=== PATIENT | female | born 2000 | race Caucasian/White ===

== ENCOUNTER 2021-03-14 21:47 | Emergency (ER) | payer OTHER, SELFPAY ==
[2021-03-14 21:57] VITALS: BP 150/88; PULSE 83; RESP 18; TEMP 36.6; O2SAT 98; BMI 35.3
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
== END 2021-03-14 22:53 | disposition home or self-care (01) ==
PROVIDERS: Emergency Provider Emergency Medicine
DX: L03.115 Cellulitis of right lower limb (principal); M79.671 Pain in right foot
CPT/HCPCS: 99283

== ENCOUNTER 2023-12-18 18:36 | Emergency (ER) | payer OTHER, SELFPAY ==
--- NOTE | 2023-12-18 19:00 | ED.GENADULT ---
HPI - General Adult General Chief complaint: Nausea/Vomiting/Diarrhea Stated complaint: vomiting blood, 10 wks Time Seen by Provider: 12/18/23 21:31 Source: patient Mode of arrival: ambulatory Limitations: no limitations History of Present Illness ED Provider: freda OLIVA narrative: Patient is 10 weeks 2 been vomiting for last few days unable to hold any liquids solids down does not have any medication for nausea yet no vaginal bleeding no significant abdominal pain no fever no chills no urinary complaint Related Data Previous Rx's ?Medication ?Instructions ?Recorded bacitracin 500 unit/gram topical 1 appl topical BID #30 grams 03/14/21 ointment cephalexin 500 mg capsule 500 mg PO QID 7 days #28 caps 03/14/21 cefuroxime axetil 250 mg tablet 250 mg PO BID 7 days #14 tabs 12/19/23 ondansetron 4 mg disintegrating 4 mg PO Q6-8H PRN nausea and 12/19/23 tablet vomiting #20 tabs pyridoxine (vitamin B6) 25 mg 25 mg PO TID #30 tabs 12/19/23 tablet Allergies Allergy/AdvReac Type Severity Reaction Status Date / Time No Known Allergies Allergy Verified 12/18/23 19:02 Review of Systems Review of Systems: Yes all other systems are reviewed and are negative [facility] Social History Social History Smoked in Last 30 Days: No Use of substances other than those prescribed or required for medical reasons: No Advance Directives: No Advance Directives Information Provided: No Do you have a plan to hurt others: No Plan Patient : Yes Physical Exam ED Vital Signs: Vital Signs - 24 hr 12/18/23 19:01 12/18/23 21:54 Temperature 98.2 F 98.9 F Pulse Rate 81 69 Respiratory Rate 17 16 Blood Pressure 134/90 H 120/64 Pulse Oximetry 98 97 Oxygen Delivery Method Room Air Room Air BMI result Body Mass Index 36.3 Appearance: Alert. Oriented X3. No acute distress. Eyes: No pallor or icterus ENT: Pharynx normal. Oral Mucosa moist Neck: Normal inspection. Neck supple. CVS: Normal heart rate and rhythm. Pulses normal. Respiratory: No respiratory distress. Equal air entry bilateral, Abdomen: Soft and nontender. Bowel sounds are present, no mass palpable, no CVA tenderness Skin: Skin warm and dry. Normal skin color. Normal skin turgor. Extremities: No lower extremity edema. No calf tenderness Neuro: Oriented X 3. Course Course Course Narrative: RME performed by Bell Glez PA-C. Patient is a 23 year old assigned female at presenting to the emergency department with vomiting blood. Patient states she is 10 weeks and has been vomiting blood, unable to keep anything down. Patient states that she OBs through [facility]. Detailed physical exam and review of systems are deferred to the working second hand. Labs and swabs ordered. Patient placed back in the waiting room pending room availability and results. Medications Administered Discontinued Medications Generic Name Dose Route Start Last Admin Trade Name Freq PRN Reason Stop Dose Admin Al Hydroxide/Mg Hydroxide 30 ml 12/18/23 21:33 12/18/23 22:04 Magnesium Hydrox/Alum Hydrox 30 Ml Oral.Susp PO 12/18/23 21:34 30 ml ONCE ONE Administration Sodium Chloride 1,000 mls @ 999 mls/hr 12/18/23 21:32 12/18/23 23:05 Ns IV 12/18/23 22:32 Infused .Q1H1M ONE Infusion Ceftriaxone Sodium 1 gm/ 50 mls @ 100 mls/hr 12/18/23 21:33 12/18/23 22:59 Sodium Chloride IV 12/18/23 22:02 Infused ONCE ONE Infusion Ondansetron HCl 4 mg 12/18/23 21:32 12/18/23 22:04 Ondansetron Hcl 4 Mg/2 Ml Vial IVPUSH 12/18/23 21:33 4 mg ONCE ONE Administration Medical Decision Making Medical Decision Making MDM Narrative: Patient is 10 weeks with UTI received IV fluids IV Zofran and IV Rocephin feeling much better taking p.o. fluids will discharge patient home on cefuroxime and Zofran advised to follow with OBGYN Lab Data MDM Lab Attestation statement: I reviewed the patient's lab results. 12/18/23 19:23 12/18/23 19:23 Labs: Lab Results 12/18/23 Range/Units 19:23 WBC 12.7 H (4.8-10.8) X10*3/uL RBC 3.92 L (4.20-5.50) X10*6/uL Hgb 11.7 L (12.0-16.0) g/dl Hct 34.7 L (37.0-47.0) % MCV 88.5 (80.0-98.0) fL MCH 29.8 (27.0-33.0) pg MCHC 33.7 (31.0-35.0) g/dl RDW 13.5 (11.0-16.0) % Plt Count 339 (160-400) X10*3/uL MPV 9.4 (9.4-12.3) fL Immature Gran % (Auto) 0.3 (0.0-0.4) % Neut % (Auto) 68.2 (45-73) % Lymph % (Auto) 24.9 (20-40) % Shannon % (Auto) 5.8 (2-11) % Eos % (Auto) 0.6 (0-4) % Baso % (Auto) 0.2 (0-2) % Lymph # (Auto) 3.2 (1.2-4.9) X10*3/uL Shannon # (Auto) 0.7 (0.1-1.2) X10*3/uL Eos # (Auto) 0.1 (0.0-0.4) X10*3/uL Baso # (Auto) 0.0 (0.0-0.2) X10*3/uL Abs Immat Gran (auto) 0.04 H (0.00-0.03) X10*3/uL Absolute Neuts (auto) 8.6 H (2.0-8.3) x10*3/uL Absolute Nucleated RBC 0.000 (0.0-0.012) X10*3/uL Nucleated RBC % (auto) 0.0 (0.0-0.2) /100WBC Sodium 137 (135-145) mmol/L Potassium 3.7 (3.3-5.1) mmol/L Chloride 109 H (96-108) mmol/L Carbon Dioxide 21 L (22-29) mmol/L Anion Gap 11 L (12-20) BUN 10 (9-16) mg/dL Creatinine 0.67 (0.5-1.4) mg/dL Estim Creat Clear Calc 128.7 Estimated GFR > 60 Random Glucose 76 (60-115) mg/dL Calcium 9.2 (8.4-10.2) mg/dL Magnesium 1.9 (1.6-2.6) mg/dL Total Bilirubin 0.3 (0.0-1.0) mg/dL AST 19 (5-31) U/L ALT 15 (0-31) U/L Alkaline Phosphatase 72 (39-117) U/L Total Protein 7.2 (6.5-8.0) g/dL Albumin 3.8 (3.5-5.0) g/dL Beta HCG, Quant [id number] mIU/mL Urine Color Yellow Urine Appearance Cloudy Urine pH 5.5 (5.0-9.0) Ur Specific Wenden 1.025 (1.005-1.025) Urine Protein Negative (Neg-Trace) mg/dL Urine Glucose (UA) Negative (Negative) mg/dL Urine Ketones Trace (Negative) mg/dL Urine Blood Small (1+) H (Negative) Urine Nitrite Negative (Negative) Ur Leukocyte Esterase Moderate (2+) H (Negative) Urine RBC 6-10 H (0-2) /HPF Urine WBC 11-20 H (0-5) /HPF Ur Squamous Epith Cells 6-10 (0-2) /HPF Urine Bacteria 4+ (None Seen) Hyaline Casts 3-5 (0-2) /LPF Discharge Plan Discharge Clinical Impression: Hyperemesis gravidarum, UTI (urinary tract infection) Patient Disposition: Home, Self-Care Instructions: Hyperemesis Gravidarum (ED), Urinary Tract Infection in (ED) Additional Instructions: Drink plenty of fluids Medicine for nausea as prescribed Antibiotic as prescribed for urinary tract infection 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
[2023-12-18 19:01] VITALS: BP 134/90; PULSE 81; RESP 17; TEMP 36.8; O2SAT 98; BMI 36.3
--- NOTE | 2023-12-18 19:24 | MHC.EDTECH ---
Patient brought into triage area,labs/urine obtained and sent to lab.
[2023-12-18 19:28] LABS: MANUAL DIFF FLAG NO
[2023-12-18 19:30] LABS: Basophils Percent Auto 0.2 % (0-2); Eosinophils Absolute Auto 0.1 X10*3/uL (0.0-0.4); Eosinophils Percent Auto 0.6 % (0-4); Hematocrit 34.7 % (37.0-47.0); Hemoglobin 11.7 g/dl (12.0-16.0); Imm Gran Abs Auto 0.04 X10*3/uL (0.00-0.03); Imm Gran Pct Auto 0.3 % (0.0-0.4); Lymphocytes Absolute Auto 3.2 X10*3/uL (1.2-4.9); Lymphocytes Percent Auto 24.9 % (20-40); Mean Corpuscular HGB Conc 33.7 g/dl (31.0-35.0); Mean Corpuscular Hemoglobin 29.8 pg (27.0-33.0); Mean Corpuscular Volume 88.5 fL (80.0-98.0); Mean Platelet Volume 9.4 fL (9.4-12.3); Monocytes Absolute Auto 0.7 X10*3/uL (0.1-1.2); Monocytes Percent Auto 5.8 % (2-11); Neutrophils Absolute Auto 8.6 x10*3/uL (2.0-8.3); Neutrophils Percent Auto 68.2 % (45-73); Platelet Count 339 X10*3/uL (160-400); Red Blood Count 3.92 X10*6/uL (4.20-5.50); Red Cell Distribution Width 13.5 % (11.0-16.0); White Blood Count 12.7 X10*3/uL (4.8-10.8)
[2023-12-18 19:31] LABS: Appearance Urine Cloudy; Color Urine Yellow; Glucose Urine UA Negative (Negative); Leukocyte Esterase Urine Moderate (2+) (Negative); Nitrite Urine Negative (Negative); PH 5.5 (5.0-9.0); Specific Gravity - Urine 1.025 (1.005-1.025); UMIC TRIGGER UACC YES; Urine Blood Small (1+) (Negative); Urine Ketones Trace mg/dL (Negative); Urine Protein Negative (Neg-Trace)
[2023-12-18 19:36] LABS: Bacteria Urine 4+ (None Seen); UACC Culture Trigger YES
[2023-12-18 20:00] LABS: Alanine Aminotransferase 15 U/L (0-31); Albumin Level 3.8 g/dL (3.5-5.0); Alkaline Phosphatase 72 U/L (39-117); Anion Gap 11 (12-20); Aspartate Amino Transferase 19 U/L (5-31); Bilirubin Total 0.3 mg/dL (0.0-1.0); Blood Urea Nitrogen 10 mg/dL (9-16); Calcium 9.2 mg/dL (8.4-10.2); Carbon Dioxide 21 mmol/L (22-29); Chloride 109 mmol/L (96-108); Creatinine Clr Calc Pharmacy 128.7; Estimated Glomerular Filt Rate > 60; Glucose Random 76 mg/dL (60-115); Magnesium 1.9 mg/dL (1.6-2.6); Potassium 3.7 mmol/L (3.3-5.1); Sodium 137 mmol/L (135-145); Total Protein 7.2 g/dL (6.5-8.0)
[2023-12-18 21:54] VITALS: BP 120/64; PULSE 69; RESP 16; TEMP 37.2; O2SAT 97
[2023-12-18] MEDS: cefTRIAXone sodium 1 GM in 0.9 % Sodium Chloride 50 ML IV (22:04)
[2023-12-18] MEDS: Magnesium Hydrox/Alum Hydrox 30 ML ORAL.SUSP PO (22:04)
[2023-12-18] MEDS: 0.9 % Sodium Chloride 1,000 ML 999 ML IV (22:04)
[2023-12-18] MEDS: ondansetron HCL 4 MG/2 ML VIAL IVPUSH (22:04)
[2023-12-19 01:21] VITALS: BP 120/64; PULSE 69; RESP 16; TEMP 37.2; O2SAT 97
== END 2023-12-19 01:27 | disposition home or self-care (01) ==
PROVIDERS: Physician Assistant Medical; Emergency Provider Internal Medicine
DX: O21.0 Mild hyperemesis gravidarum (principal); O23.41 Unspecified infection of urinary tract in pregnancy, first trimester; N39.0 Urinary tract infection, site not specified; Z3A.10 10 weeks gestation of pregnancy
CPT/HCPCS: 36415; 80053; 81001; 83735; 84702; 85025; 87086; 96361; 96365; 96375; 99284; J0696; J2405

== ENCOUNTER 2025-04-08 23:03 | Emergency (ER) | payer OTHER, SELFPAY ==
[2025-04-08 23:09] VITALS: BP 140/95; PULSE 84; RESP 18; TEMP 36.4; O2SAT 99; BMI 42.9
[2025-04-08 23:45] LABS: IDNOW Serial# 152EDE1D
[2025-04-08 23:46] LABS: COVID-19 Test Negative (Negative); IDNOW Serial# 16C4AD1C; Influenza B2 Negative (Negative)
--- OUTSIDE RECORDS SUMMARY | 2025-04-09 01:23 | XMS_ITS | Clinical Summary ---
Author Organization [facility] Address [address] [place] [phone] Phone Care Team Providers Care Store Stocker Name Role Phone Unknown, Unknown Primary Care Provider Braulio buckner Social History Tobacco Use Types Packs/Day Years Used Date Smoking Tobacco: Never Assessed Comments Unknown Sex and Gender Information Value Date Recorded Sex Assigned at Not on file Legal Sex Female 6:19 PM EST Gender Identity Not on file Sexual Orientation Not on file Plan of Treatment Not on file Medical Devices Not on file Insurance [employer] [facility] Care Teams Store Stocker Relationship Specialty Start Date End Date Unknown, Unknown, PCP - General 06/12/15 Additional Source Comments The information contained in this document represents components of the legal health record. It is not the complete legal health record.[facility]
--- OUTSIDE RECORDS SUMMARY | 2025-04-09 01:23 | XMS_ITS | Clinical Summary ---
Author Organization [facility] [address] [facility] Address [address] [place] [address] Phone Care Team Providers Care Nut Orchardist Name Role Phone Elena Wilder MD Primary Care Provider [phone] Allergies No known active allergies Medications albuterol HFA (PROAIR HFA ; PROVENTIL HFA ; VENTOLIN HFA) 90 mcg/actuation inhaler Inhale 2 Puffs into the lungs every 4 hours as needed for Cough or Wheezing. 10/12/2023 Active sertraline (ZOLOFT) 25 mg tablet Take 1 Tablet by mouth daily. Active traZODone (DESYREL) 50 mg tablet Take 1 Tablet by mouth as needed. Active Active Problems Problem Noted Date Diagnosed Date Anxiety and depression 09/17/2023 Immunizations Immunization Administration Dates Next Due Td Tetanus diptheria (Tdvax) 7yo and older 09/16 Social History Tobacco Use Types Packs/Day Years Used Date Smoking Tobacco: Former Housing Instability Answer Date Recorde d Are you worried that in the next 2 months you may not have stable housing? No 09/13/2024 Food Access & Nutrition Answer Date Rec orded Do you have access to a vari ety of food including fruits and vegetables? Yes 09/13/2024 Health Literacy Answer Date Recorded How often do you need to hav e someone help you when you read instructions, pamphlets, or other written material from your doctor or pharmacy? Never 09/13/2024 Caregiver: How often do you need to have someone help you when you read instructions, pamphlets, or other written material from your doctor or pharmacy? Not on file 09/13/2024 Financial Risk Answer Date Recorded How hard is it for you to pa y for the very basics like food, housing, medical care, and air conditioning / heating? Not very hard 09/13/2024 Transportation Answer Date Recorded Has the lack of transportati on kept you from meetings, work, or from getting things needed for daily living? No Has the lack of transportati on kept you from medical appointments or from getting medications? No 09/13/2024 Social Isolation Answer Date Recorded How often do you feel lonely or isolated from th ose around you? Rarely 09/13/2024 Food Risk Answer Date Recorded Within the past 12 months we worried whether our food would run out before we got money to buy more. Never true 09/13/2024 Within the past 12 months th e food we bought just didn't last and we didn't have money to get more. Never true 09/13/2024 Dependent Care Answer Date Recorded Do you need help finding or paying for care for your loved ones. For example, exceptional children teacher or elderly care for an older adult? No 09/13/2024 Education Answer Date Recorded Do you think completing more education or training, like finishing a GED, going to college, or learning a trade, would be helpful for you? Yes 09/13/2024 Employment and Income Answer Date Recor ded During the last four weeks, have you been actively looking for work? No 09/13/2024 Living Situation Answer Date Recorded What is your living situation? Unrecognized valu e 09/13/2024 Comments Unknown Sex and Gender Information Value Date Recorded Sex Assigned at Not on file Legal Sex Female 5:31 AM EST Gender Identity Not on file Sexual Orientation Not on file Last Filed Vital Signs Vital Sign Reading Time Taken Comments Blood Pressure 134/87 10/12/2023 12:46 PM EDT Pulse 102 10/12/2023 12:46 PM EDT Temperature - - Respiratory Rate - - Oxygen Saturation - - Inhaled Oxygen Concentration - - Weight 86.6 kg (191 lb) 10/12/2023 12:46 PM EDT Height 154.9 cm (5' 1 ) 10/12/2023 12:46 PM EDT Body Mass Index 36.09 10/12/2023 12:46 PM EDT Plan of Treatment Upcoming Encounters Date Type Department Care Team (Late st Contact Info) Description 05/18/2025 8:30 AM EST Office Visit Adult Medicine [facility] [address] [place] [phone] Micky Garcia PA [address] [place] [address] Health Maintenance Due Date Last Done Comments HPV Vaccines (1 - 3-dose series) 2013 Hepatitis B Vaccines (1 of 3 - 19+ 3-dose series) 2017 Cervical Cancer Screening: P ap Smear 11/11/2019 HIV Screening 03/08/2024 Hepatitis C Screening 03/08/2024 COVID-19 Vaccine (1 - 2024-2 6 season) 2024 Influenza Vaccine (#1) 2024 Social Influencers of Health Screening 09/13/2025 09/13/2024 DTaP,Tdap,and Td Vaccines (2 - Td or Tdap) 09/16/2033 09/17/2023 RSV Immunization Adult Patie nts (1 - 1-dose 75+ series) 2073 Depression Screening Completed 09/13/2024 HIB Vaccines Aged Out No longer eligi ble based on patient's age to complete this topic Hepatitis A Vaccines Aged Out No long er eligible based on patient's age to complete this topic IPV Vaccines Aged Out No longer eligi ble based on patient's age to complete this topic MMR Vaccines Aged Out No longer eligi ble based on patient's age to complete this topic Meningococcal ACWY Vaccine Aged Out N o longer eligible based on patient's age to complete this topic Meningococcal B Vaccine Aged Out No l onger eligible based on patient's age to complete this topic Pneumococcal Vaccine: Pediat rics (0 to 5 Years) and At-Risk Patients (6 to 49 Years) Aged Out No longer eligi ble based on patient's age to complete this topic RSV Immunization Patients Un vinayak 20 months Aged Out No longer eligible b ased on patient's age to complete this topic Varicella Vaccines Aged Out No longer eligible based on patient's age to complete this topic Insurance [facility] Care Teams Nut Orchardist Relationship Specialty Start Date End Date Elena Wilder MD [address] [place] [phone] PCP - General Internal Medicine 12/16/24
--- NOTE | 2025-04-09 01:47 | ED.GENADULT ---
HPI - General Adult General Chief complaint: General Medical Stated complaint: rt side face swollen/fu like symptoms Time Seen by Provider: 04/09/25 01:14 Source: patient Limitations: no limitations History of Present Illness ED Provider: Jaye Monsivais PA-C HPI narrative: 24-year-old female presents with right-sided facial swelling over the past day. Pain over right lower jaw line and neck. Associated fever of 100.4 today with the chills and a headache. Patient has been having ongoing discomfort associated with the extraction site from when her wisdom tooth was removed; right lower jaw. The extraction was not recent, it was remote. Patient denies sore throat, trismus or drooling. Denies recent cough or cold symptoms, no sick contacts with same symptoms. Related Data Previous Rx's ?Medication ?Instructions ?Recorded bacitracin 500 unit/gram topical 1 appl topical BID #30 grams 03/14/21 ointment cephalexin 500 mg capsule 500 mg PO QID 7 days #28 caps 03/14/21 cefuroxime axetil 250 mg tablet 250 mg PO BID 7 days #14 tabs 12/19/23 ondansetron 4 mg disintegrating 4 mg PO Q6-8H PRN nausea and 12/19/23 tablet vomiting #20 tabs pyridoxine (vitamin B6) 25 mg 25 mg PO TID #30 tabs 12/19/23 tablet amoxicillin 875 mg-potassium 1 tab PO Q12H #19 tabs 04/09/25 clavulanate 125 mg tablet ketorolac 10 mg tablet 10 mg PO Q6H PRN pain #20 tabs 04/09/25 Allergies Allergy/AdvReac Type Severity Reaction Status Date / Time No Known Allergies Allergy Verified 04/08/25 23:13 Review of Systems Review of Systems: Yes all other systems are reviewed and are negative Constitutional: Constitutional: Denies fatigue and Reports fever(s) ENT: Reports dental pain, Denies nasal congestion, Denies sore throat, Denies throat swelling and Denies tongue swelling Cardiovascular: Cardiovascular: Denies chest pain and Denies dyspnea Respiratory: Respiratory: Denies cough and Denies dyspnea Endocrine: Endocrine: Denies fatigue Allergic/Immunologic: Allergic/Immunologic: Denies throat swelling and Denies tongue swelling [facility] Past Medical History Attestation statement: The following information was validated with the patient. Social History Social History Advance Directives: No Advance Directives Information Provided: Yes Physical Exam ED Vital Signs: Vital Signs - 24 hr 04/08/25 23:09 Temperature 97.5 F Pulse Rate 84 Respiratory Rate 18 Blood Pressure 140/95 H Pulse Oximetry 99 Oxygen Delivery Method Room Air BMI result Body Mass Index 42.9 Const Other: Alert Orientation/consciousness: patient oriented x3 HENMT Other: Oropharynx is pink, uvula midline, no tonsillar swelling, no trismus no drooling, no sublingual fluctuance, no swelling inferior to the jawline. Dentition intact, there is fleshy scar tissue covering the extraction site of the right lower wisdom tooth site, there was no purulence, it is nontender. No purulence noted from right-sided Stensen's duct, there was no swelling in the region of the parotid gland. Neck Other: Subtle right-sided cervical anterior lymphadenopathy, tender to palpation Resp Effort & Inspection: normal respiratory effort Cardio Other: Normal peripheral perfusion Skin Other: Warm dry no rash Neuro General: patient oriented x3, gait normal, no focal motor deficits and CN's II-XI intact bilaterally Psych Other: Cooperative Medications Administered Discontinued Medications Generic Name Dose Route Start Last Admin Trade Name Freq PRN Reason Stop Dose Admin Amoxicillin/Clavulanate Potassium 875 mg 04/09/25 01:34 04/09/25 01:54 Amoxicillin/Potassium Clav 875 Mg Tablet PO 04/09/25 01:35 875 mg ONCE ONE Administration Ketorolac Tromethamine 15 mg 04/09/25 01:34 04/09/25 01:54 Ketorolac Tromethamine 15 Mg/Ml Vial IM 04/09/25 01:35 15 mg ONCE ONE Administration Medical Decision Making Medical Decision Making [facility] Narrative: 24-year-old female presents with right-sided facial swelling over the past day. Pain over right lower jaw line and neck. Associated fever of 100.4 today with the chills and a headache. Patient has been having ongoing discomfort associated with the extraction site from when her wisdom tooth was removed; right lower jaw. The extraction was not recent, it was remote. Patient denies sore throat, trismus or drooling. Denies recent cough or cold symptoms, no sick contacts with same symptoms. No chronic issues History: Per patient I have considered the following differential diagnoses: Dental abscess, strep pharyngitis, RPA, [employer] DE[employer] SHERIFF, sialoadenitis, parotitis, Eliezer angina Plan: Overall, patient's exam is benign, I do feel she likely is developing an early dental infection given the nature of symptoms and her exam. We will send with ketorolac for pain and start on Augmentin. I will provide her with multiple contacts for local dental clinics. Despite the triage note, the patient is not having pharyngitis, her exam was not consistent with strep pharyngitis or RPA/SPE[employer] DEPUT[employer] SHERIFF. I have independently reviewed the following tests: Labs: Viral panel negative Differential Diagnosis Differential Diagnoses: The differential diagnosis associated with the presentation includes See MDM Admission/Observation Consideration of admission/observation: Escalation of care including admission/observation considered Not applicable Lab Data MDM Lab Attestation statement: I reviewed the patient's lab results. Labs: Lab Results 04/08/25 Range/Units 23:19 COVID-19 (DALIA) Negative (Negative) COVID-19 Clin Com See Note Influenza Type A (YOVANY) Negative (Negative) Influenza Type B (YOVANY) Negative (Negative) Influenza A & B Note See Note Discharge Plan Discharge Clinical Impression: Abscess, dental Patient Disposition: Home, Self-Care Instructions: Dental Abscess (ED) Additional Instructions: It is concerning that you are developing an early dental infection. See home care instructions. Take the Augmentin as directed this is an antibiotic, complete the entire course. Use the ketorolac as needed for pain or fever. You need to call a dentist on Thursday to schedule an appointment. I have provided you with some local contacts. Prescriptions: New amoxicillin-pot clavulanate 875-125 mg tablet 1 tab PO Q12H Qty: 19 0RF ketorolac 10 mg tablet 10 mg PO Q6H PRN (Reason: pain) Qty: 20 0RF Rx Instructions: maximum total duration of 5 days from all oral, intranasal, or parenteral formulations, patient received an intramuscular dose of Toradol here in the emergency No Action bacitracin 500 unit/gram ointment 1 appl topical BID Qty: 30 0RF cephalexin 500 mg capsule 500 mg PO QID 7 Days Qty: 28 0RF pyridoxine (vitamin B6) 25 mg tablet 25 mg PO TID Qty: 30 0RF cefuroxime axetil 250 mg tablet 250 mg PO BID 7 Days Qty: 14 0RF ondansetron 4 mg tablet,disintegrating 4 mg PO Q6-8H PRN (Reason: nausea and vomiting) Qty: 20 0RF Referrals: [facility] [Outside] Referral Note: concern for developing dental abscess, right lower jaw Mehul Fraga DMD [Dentist, Dentistry] Referral Note: concern for developing dental abscess, right lower jaw Discharge Date/Time: 04/09/25 02:04 Print Language: Guyanese
== END 2025-04-09 02:04 | disposition home or self-care (01) ==
PROVIDERS: Emergency Provider Emergency Medicine; PCP Internal Medicine
DX: K04.7 Periapical abscess without sinus (principal); M54.2 Cervicalgia; R50.9 Fever, unspecified; R51.9 Headache, unspecified; Z03.818 Encounter for observation for suspected exposure to other biological agents ruled out
CPT/HCPCS: 87502; 87635; 96372; 99282; 99284; J1885